=== PATIENT | female | born 1980 | race Caucasian/White ===

== ENCOUNTER 2018-05-01 08:47 | Outpatient (REF) | payer OTHER, SELFPAY ==
[2018-05-01 12:52] LABS: Absolute Basophil Count 0.01 k/cumm (0.0-0.2); Absolute Eosinophil Count 0.11 k/cumm (0.0-0.7); Absolute Lymphocyte Count 1.43 k/cumm (1.2-3.4); Absolute Monocyte Count 0.53 k/cumm (0.11-0.7); Absolute Neutrophil Count 2.38 k/cumm (1.2-6.7); Basophils % 0.2; Eosinophils % 2.5; HCT 36.9 % (36.0-46.0); HGB 11.5 g/dL (12.0-15.5); Lymphocytes % 32.1; Mean Corp. HGB Concentration 31.2 g/dL (32.0-36.0); Mean Corpuscular Hemoglobin 26.6 pg (27.0-33.0); Mean Corpuscular Volume 85.4 fL (80-95); Mean Platelet Volume 12.3 fL (8.0-11.0); Monocytes % 11.9; Neutrophils % 53.3; Platelet Count 234 x1000/uL (130-400); RBC 4.32 m/cumm (4.00-5.20); RBC Distribution Width 14.7 % (11.7-14.6); White Blood Cell Count 4.46 k/cumm (4.4-10.8)
[2018-05-01 13:15] LABS: ALT 14 U/L (12-78); AST 19 U/L (15-37); Albumin 3.5 g/dL (3.4-5.0); Alkaline Phosphatase 50 U/L (46-116); Anion Gap 8.2 mmol/L (3-11); BUN 10 mg/dL (7-18); Bilirubin, Total 0.3 mg/dL (0.2-1.0); CO2 26.8 mmol/L (21.0-32.0); CREATININE 0.89 mg/dL (0.55-1.02); Calcium 8.3 mg/dL (8.5-10.1); Chloride 107 mmol/L (98-107); Cholesterol 125 mg/dL (50-200); Glucose 84 mg/dL (70-100); HDL Cholesterol 61 mg/dL (40-60); LDL CHOLESTEROL 52 mg/dL (<100); Sodium 142 mmol/L (136-145); TSH (W/Ref FT4) 2.23 uIU/mL (0.358-3.74); Total Protein 6.8 g/dL (6.4-8.2); Triglyceride 47 mg/dL (30-150)
[2018-05-01 14:02] LABS: Vitamin B12 315 pg/mL (193-986)
== END 2018-05-01 09:07 ==
LOC: NCHCN 08:47
PROVIDERS: Visit Provider Nurse Practitioner Family
DX: F31.9 Bipolar disorder, unspecified (principal); F10.11 Alcohol abuse, in remission; F41.9 Anxiety disorder, unspecified; Z86.59 Personal history of other mental and behavioral disorders
CPT/HCPCS: 80053; 80061; 83721; 82607; 84443; 85025

== ENCOUNTER 2018-06-09 08:46 | Outpatient (REF) | payer OTHER, SELFPAY ==
[2018-06-09 12:47] LABS: HCT 37.7 % (36.0-46.0); HGB 12.2 g/dL (12.0-15.5); Mean Corp. HGB Concentration 32.4 g/dL (32.0-36.0); Mean Corpuscular Hemoglobin 27.8 pg (27.0-33.0); Mean Corpuscular Volume 85.9 fL (80-95); Mean Platelet Volume 12.4 fL (8.0-11.0); Platelet Count 205 x1000/uL (130-400); RBC 4.39 m/cumm (4.00-5.20); RBC Distribution Width 14.9 % (11.7-14.6); White Blood Cell Count 3.24 k/cumm (4.4-10.8)
[2018-06-09 13:04] LABS: Absolute Basophil Count 0.03 k/cumm (0.0-0.2); Absolute Eosinophil Count 0.03 k/cumm (0.0-0.7); Absolute Lymphocyte Count 1.43 k/cumm (1.2-3.4); Absolute Monocyte Count 0.52 k/cumm (0.11-0.7); Absolute Neutrophil Count 1.23 k/cumm (1.2-6.7); Atypical Lymphocytes % 4; Diff Comment Manual Differential; RBC Morphology Normal
[2018-06-09 13:34] LABS: VALPROIC ACID 21.9 ug/mL (50-100)
== END 2018-06-09 09:06 ==
LOC: NCHCN 08:46
PROVIDERS: PCP Nurse Practitioner Psychiatric/Mental Health; Visit Provider Nurse Practitioner Psychiatric/Mental Health
DX: F31.9 Bipolar disorder, unspecified (principal); Z51.81 Encounter for therapeutic drug level monitoring; Z79.899 Other long term (current) drug therapy
CPT/HCPCS: 80164; 85025

== ENCOUNTER 2018-06-19 08:40 | Outpatient (REF) | payer OTHER, SELFPAY ==
[2018-06-19 12:51] LABS: Abs Immature Grans 0.01 k/cumm (0.0-0.09); Absolute Basophil Count 0.01 k/cumm (0.0-0.2); Absolute Eosinophil Count 0.05 k/cumm (0.0-0.7); Absolute Lymphocyte Count 1.47 k/cumm (1.2-3.4); Absolute Monocyte Count 0.49 k/cumm (0.11-0.7); Absolute Neutrophil Count 2.61 k/cumm (1.2-6.7); Basophils % 0.2; Eosinophils % 1.1; HCT 39.9 % (36.0-46.0); HGB 12.8 g/dL (12.0-15.5); Immature Grans % 0.2; Lymphocytes % 31.7; Mean Corp. HGB Concentration 32.1 g/dL (32.0-36.0); Mean Corpuscular Hemoglobin 27.6 pg (27.0-33.0); Mean Platelet Volume 13.1 fL (8.0-11.0); Monocytes % 10.6; Neutrophils % 56.2; Platelet Count 214 x1000/uL (130-400); RBC 4.64 m/cumm (4.00-5.20); RBC Distribution Width 15.2 % (11.7-14.6); White Blood Cell Count 4.64 k/cumm (4.4-10.8)
[2018-06-19 14:02] LABS: VALPROIC ACID 63.8 ug/mL (50-100)
== END 2018-06-19 09:00 ==
LOC: NCHCN 08:40
PROVIDERS: PCP Nurse Practitioner Psychiatric/Mental Health; Visit Provider Nurse Practitioner Psychiatric/Mental Health
DX: Z79.899 Other long term (current) drug therapy (principal); Z51.81 Encounter for therapeutic drug level monitoring
CPT/HCPCS: 80164; 85025

== ENCOUNTER 2018-11-26 19:38 | Outpatient (REF) | payer OTHER, SELFPAY ==
[2018-11-26 13:33] LABS: Absolute Basophil Count 0.01 k/cumm (0.0-0.2); Absolute Monocyte Count 0.74 k/cumm (0.11-0.7); Absolute Neutrophil Count 1.62 k/cumm (1.2-6.7); Basophils % 0.2; Eosinophils % 2.3; HCT 38.6 % (36.0-46.0); HGB 12.9 g/dL (12.0-15.5); Lymphocytes % 42.2; Mean Corp. HGB Concentration 33.4 g/dL (32.0-36.0); Mean Corpuscular Hemoglobin 29.3 pg (27.0-33.0); Mean Corpuscular Volume 87.7 fL (80-95); Mean Platelet Volume 13.1 fL (8.0-11.0); Monocytes % 17.3; Platelet Count 194 x1000/uL (130-400); RBC Distribution Width 13.2 % (11.7-14.6); White Blood Cell Count 4.27 k/cumm (4.4-10.8)
[2018-11-26 13:53] LABS: ALT 25 U/L (14-59); AST 12 U/L (15-37)
[2018-11-26 14:01] LABS: VALPROIC ACID 70.9 ug/mL (50-100)
== END 2018-11-26 19:58 ==
LOC: NCHCN 19:38
PROVIDERS: PCP Nurse Practitioner Psychiatric/Mental Health; Visit Provider Nurse Practitioner Psychiatric/Mental Health
DX: Z79.899 Other long term (current) drug therapy (principal)
CPT/HCPCS: 80164; 84450; 84460; 85025

== ENCOUNTER 2018-12-15 18:30 | Outpatient (REF) | payer OTHER, SELFPAY ==
[2018-12-15 19:34] LABS: *AMPHETAMINES SCREEN URINE Negative (Negative); *BARBITURATES SCREEN URINE Negative (Negative); *BENZODIAZEPINES SCREEN URINE Negative (Negative); Cannabinoids THC Negative (Negative); Cocaine Screen,Urine Negative (Negative); METHADONE URINE SCREEN Negative (Negative); OPIATES URINE SCREEN Negative (Negative)
[2018-12-15 19:36] LABS: Tricyclic Antidepressants Negative (Negative)
== END 2018-12-15 18:50 ==
LOC: NCHCN 18:30
PROVIDERS: PCP Nurse Practitioner Psychiatric/Mental Health; Visit Provider Nurse Practitioner Psychiatric/Mental Health
DX: F10.11 Alcohol abuse, in remission (principal)
CPT/HCPCS: 80307

== ENCOUNTER 2019-05-13 11:27 | Outpatient (REF) | payer OTHER, SELFPAY ==
[2019-05-13 11:41] LABS: Absolute Basophil Count 0.02 k/cumm (0.0-0.2); Absolute Eosinophil Count 0.08 k/cumm (0.0-0.7); Absolute Lymphocyte Count 1.75 k/cumm (1.2-3.4); Absolute Monocyte Count 0.59 k/cumm (0.11-0.7); Absolute Neutrophil Count 1.99 k/cumm (1.2-6.7); Basophils % 0.5; Eosinophils % 1.8; HCT 40.9 % (36.0-46.0); HGB 13.6 g/dL (12.0-15.5); Lymphocytes % 39.5; Mean Corp. HGB Concentration 33.3 g/dL (32.0-36.0); Mean Corpuscular Hemoglobin 29.8 pg (27.0-33.0); Mean Corpuscular Volume 89.5 fL (80-95); Mean Platelet Volume 13.4 fL (8.0-11.0); Monocytes % 13.3; Neutrophils % 44.9; Platelet Count 152 x1000/uL (130-400); RBC 4.57 m/cumm (4.00-5.20); RBC Distribution Width 12.9 % (11.7-14.6); White Blood Cell Count 4.43 k/cumm (4.4-10.8)
[2019-05-13 11:59] LABS: ALT 15 U/L (14-59); AST 12 U/L (15-37); Albumin 3.6 g/dL (3.4-5.0); Alkaline Phosphatase 52 U/L (46-116); Bilirubin, Direct 0.09 mg/dL (0.00-0.20); Bilirubin, Total 0.2 mg/dL (0.2-1.0); Total Protein 6.7 g/dL (6.4-8.2)
[2019-05-13 12:05] LABS: VALPROIC ACID 28.5 ug/mL (50-100)
== END 2019-05-13 11:47 ==
LOC: NCHCN 11:27
PROVIDERS: PCP Nurse Practitioner Psychiatric/Mental Health; Visit Provider Nurse Practitioner Psychiatric/Mental Health
DX: Z79.899 Other long term (current) drug therapy (principal); Z51.81 Encounter for therapeutic drug level monitoring
CPT/HCPCS: 80076; 80164; 85025

== ENCOUNTER 2019-07-02 08:45 | Outpatient (REF) | payer OTHER, SELFPAY ==
[2019-07-02 17:50] LABS: VALPROIC ACID 63.3 ug/mL (50-100)
[2019-07-02 17:51] LABS: ALT 15 U/L (14-59); AST 11 U/L (15-37); Albumin 3.7 g/dL (3.4-5.0); Alkaline Phosphatase 49 U/L (46-116); Bilirubin, Direct 0.18 mg/dL (0.00-0.20); Bilirubin, Total 0.5 mg/dL (0.2-1.0); Total Protein 7.1 g/dL (6.4-8.2)
[2019-07-02 18:03] LABS: Abs Immature Grans 0.01 k/cumm (0.0-0.09); Absolute Basophil Count 0.01 k/cumm (0.0-0.2); Absolute Lymphocyte Count 1.88 k/cumm (1.2-3.4); Absolute Monocyte Count 0.61 k/cumm (0.11-0.7); Absolute Neutrophil Count 1.13 k/cumm (1.2-6.7); Basophils % 0.3; Eosinophils % 2.7; HCT 40.2 % (36.0-46.0); HGB 13.5 g/dL (12.0-15.5); Immature Grans % 0.3 %; Lymphocytes % 50.3; Mean Corp. HGB Concentration 33.6 g/dL (32.0-36.0); Mean Corpuscular Hemoglobin 30.2 pg (27.0-33.0); Mean Corpuscular Volume 89.9 fL (80-95); Mean Platelet Volume 13.3 fL (8.0-11.0); Monocytes % 16.3; Neutrophils % 30.1; Platelet Count 170 x1000/uL (130-400); RBC 4.47 m/cumm (4.00-5.20); RBC Distribution Width 13.4 % (11.7-14.6); White Blood Cell Count 3.74 k/cumm (4.4-10.8)
== END 2019-07-02 09:05 ==
LOC: NCHCN 08:45
PROVIDERS: PCP Nurse Practitioner Psychiatric/Mental Health; Visit Provider Family Medicine
DX: F31.9 Bipolar disorder, unspecified (principal); Z51.81 Encounter for therapeutic drug level monitoring
CPT/HCPCS: 80076; 80164; 85025

== ENCOUNTER 2019-10-18 16:28 | Outpatient (REF) | payer OTHER, SELFPAY ==
--- NOTE | 2019-10-18 16:00 | PAPFT_PTH ---
PATIENT: Elham Singh LOC: [facility]#:[id number] AGE/SX: 38/F ROOM: RE10/18/[address]: Adriana Garber : 1980 BED: DIS: 10/18/2019 SPEC #: [id number] RECD: 10/18/19 18:16 STATUS: BAIRON REQ #: [id number] GWENDOLYN: 10/18/19 16:[address]: Adriana Garber DEPT: [facility] Cytology RECD BY: Iris Ratliff ENTERED: 10/18/19 18:16 SP TYPE: PAPFT OTHR DR: Rona Rothman Tissues: 1 - CX/ENDOCX FOR PAP SMEARS Procedures: PAP THIN PREP/[facility] Screening HPV DNA PROBE Comments: [id number] (CHLAMYDIA/GC)
[2019-10-21 15:30] LABS: Chlamydia Result Negative (Negative); GC Result Negative (Negative)
== END 2019-10-18 16:48 ==
LOC: NCHCN 16:28
PROVIDERS: PCP Nurse Practitioner Psychiatric/Mental Health; Visit Provider Family Medicine
DX: Z11.51 Encounter for screening for human papillomavirus (HPV) (principal)
CPT/HCPCS: 87491; 87591; 88142; 87624

== ENCOUNTER 2019-11-02 14:51 | Outpatient (REF) | payer OTHER, SELFPAY ==
[2019-11-02 20:23] LABS: Abs Immature Grans 0.01 10^3/uL (0.0-0.06); Absolute Basophil Count 0.04 10^3/uL (0.0-0.2); Absolute Eosinophil Count 0.15 10^3/uL (0.0-0.7); Absolute Monocyte Count 0.49 10^3/uL (0.1-0.8); Absolute Neutrophil Count 1.85 10^3/uL (1.2-6.7); Basophils % 0.8; Eosinophils % 2.9; HCT 40.8 % (36.0-46.0); HGB 13.4 g/dL (11.2-15.7); Immature Grans % 0.2; Lymphocytes % 50.6; MCH 30.8 pg (27.0-33.0); MCHC 32.8 % (32.0-36.0); MCV 93.8 fL (80-95); Monocytes % 9.5; Nucleated RBC 0 %; Platelet Count 182 10^3/uL (130-400); RBC 4.35 10^6/uL (3.93-5.22); RDW 12.5 % (11.7-14.6); RDW-SD 43.2 fL; WBC 5.14 10^3/uL (4.4-10.8)
== END 2019-11-02 15:11 ==
LOC: NCHCN 14:51
PROVIDERS: PCP Nurse Practitioner Psychiatric/Mental Health; Visit Provider Nurse Practitioner Psychiatric/Mental Health
DX: Z79.899 Other long term (current) drug therapy (principal)
CPT/HCPCS: 85025

== ENCOUNTER 2020-06-06 08:10 | Outpatient (REF) | payer OTHER, SELFPAY ==
[2020-06-06 12:08] LABS: HCT 39.4 % (36.0-46.0); HGB 13.1 g/dL (11.2-15.7); MCH 31.8 pg (27.0-33.0); MCHC 33.2 % (32.0-36.0); MCV 95.6 fL (80-95); MPV 12.5 fL (8.0-11.0); Platelet Count 162 10^3/uL (130-400); RBC 4.12 10^6/uL (3.93-5.22); RDW-SD 41.9 fL; WBC 5.23 10^3/uL (4.4-10.8)
[2020-06-06 12:25] LABS: VALPROIC ACID 44.2 ug/mL (50-100)
[2020-06-06 12:28] LABS: TSH (W/Ref FT4) 3.89 uIU/mL (0.36-3.74)
[2020-06-06 12:45] LABS: FREE T4 0.67 ng/dL (0.76-1.46)
== END 2020-06-06 08:11 | disposition home or self-care (01) ==
LOC: NCHCN 08:10
PROVIDERS: PCP Nurse Practitioner Psychiatric/Mental Health; Visit Provider Nurse Practitioner Psychiatric/Mental Health
DX: Z79.899 Other long term (current) drug therapy (principal); Z51.81 Encounter for therapeutic drug level monitoring; F31.89 Other bipolar disorder
CPT/HCPCS: 85027; 80164; 84439; 84443

== ENCOUNTER 2020-09-21 14:24 | Outpatient (REF) | payer OTHER, SELFPAY ==
[2020-09-21 19:19] LABS: HCT 42.4 % (36.0-46.0); MCH 31.2 pg (27.0-33.0); MCV 94.4 fL (80-95); MPV 11.8 fL (8.0-11.0); Platelet Count 226 10^3/uL (130-400); RBC 4.49 10^6/uL (3.93-5.22); RDW 11.9 % (11.7-14.6); RDW-SD 41.3 fL; WBC 3.93 10^3/uL (4.4-10.8)
[2020-09-21 19:38] LABS: VALPROIC ACID 26.3 ug/mL (50-100)
[2020-09-23 10:01] LABS: HIV-1/2 Ag & Ab Screen Negative (Negative)
[2020-09-26 08:55] LABS: Hepatitis C Ab w Rflx HCV PCR Negative (Negative); Syphilis Serology (RPR) Negative (Negative)
[2020-09-26 08:56] LABS: Hepatitis A Antibody IgM Negative (Negative); Hepatitis B Core Antibody Negative (Negative); Hepatitis B surface Ag Negative (Negative); Hepatitis C Ab w Rflx HCV PCR Negative (Negative)
[2020-09-26 08:58] LABS: HBs Antibody, Quant >1000.0 mIU/mL (See Note); Hepatitis B Surface Ab Positive (See Note)
== END 2020-09-21 14:25 | disposition home or self-care (01) ==
LOC: NCHCN 14:24
PROVIDERS: PCP Nurse Practitioner Psychiatric/Mental Health; Visit Provider Family Medicine
DX: Z00.00 Encounter for general adult medical examination without abnormal findings (principal); F41.9 Anxiety disorder, unspecified; Z79.899 Other long term (current) drug therapy
CPT/HCPCS: 85027; 86704; 86706; 86709; 86803; 87340; 87389; 80164; 86592

== ENCOUNTER 2020-10-18 15:52 | Outpatient (REF) | payer OTHER, SELFPAY ==
[2020-10-18 20:39] LABS: VALPROIC ACID 57.3 ug/mL (50-100)
== END 2020-10-18 15:53 | disposition home or self-care (01) ==
LOC: NCHCN 15:52
PROVIDERS: PCP Nurse Practitioner Psychiatric/Mental Health; Visit Provider Family Medicine
DX: Z79.899 Other long term (current) drug therapy (principal); F31.9 Bipolar disorder, unspecified
CPT/HCPCS: 80164

== ENCOUNTER 2022-06-21 15:05 | Outpatient (REF) | payer BC, SELFPAY ==
[2022-06-21 18:51] LABS: ALT 15 U/L (14-59); AST 16 U/L (15-37); Albumin 3.8 g/dL (3.4-5.0); Alkaline Phosphatase 57 U/L (46-116); Anion Gap 5.2 mmol/L (3-11); BUN 9 mg/dL (7-18); Bilirubin, Total 0.2 mg/dL (0.2-1.0); CO2 29.8 mmol/L (21.0-32.0); CREATININE 0.8 mg/dL (0.55-1.02); Chloride 105 mmol/L (98-107); Estimated GFR 95.46 (mL/min/1.73m2); Glucose 84 mg/dL (74-106); Potassium 4.5 mmol/L (3.5-5.1); Sodium 140 mmol/L (136-145); Total Protein 7.3 g/dL (6.4-8.2)
== END 2022-06-21 15:06 | disposition home or self-care (01) ==
LOC: NCHCN 15:05
PROVIDERS: PCP Nurse Practitioner Psychiatric/Mental Health; Visit Provider Family Medicine
DX: F10.10 Alcohol abuse, uncomplicated (principal)
CPT/HCPCS: 80053

== ENCOUNTER 2022-08-02 16:52 | Outpatient (REF) | payer BC, SELFPAY ==
[2022-08-02 19:34] LABS: ALT 21 U/L (14-59); AST 10 U/L (15-37); Albumin 4.3 g/dL (3.4-5.0); Alkaline Phosphatase 55 U/L (46-116); Bilirubin, Direct 0.2 mg/dL (0.0-0.2); Bilirubin, Total 0.8 mg/dL (0.2-1.0); Total Protein 7.7 g/dL (6.4-8.2)
== END 2022-08-02 16:53 | disposition home or self-care (01) ==
LOC: NCHCN 16:52
PROVIDERS: PCP Nurse Practitioner Psychiatric/Mental Health; Visit Provider Family Medicine
DX: F31.89 Other bipolar disorder (principal); Z79.899 Other long term (current) drug therapy; Z51.81 Encounter for therapeutic drug level monitoring
CPT/HCPCS: 80076

== ENCOUNTER 2022-08-14 02:20 | Outpatient (CLI) | payer BC, SELFPAY ==
--- NOTE | 2022-08-14 | DI.MAMMO_ITS ---
Exam(s) MAMMO SCREENING EXAM: MAMMO SCREENING CLINICAL HISTORY: SCREENING, Z12.39, BASELINE TECHNIQUE: Bilateral full field digital CC and MLO mammographic images were obtained with 3D tomosyn thesis and utilizing computer aided detection (CAD). COMPARISON: This is a baseline examination. FINDINGS: Masses/Architectural Distortion: On the left MLO view, there is a question of nodular densities in th e upper breast. The appear partially obscured. There also is a question of a partially obscured nod ular density measuring 1 cm in the posterior superior aspect of the right breast on the MLO view. Microcalcifications: No suspicious pleomorphic-type are seen. Skin Thickening/Nipple Retraction: None. IMPRESSION: 1. Question of nodular densities in the upper breast on the MLO views as described. 2. Further evaluation with spot compression views is requested. Bilateral breast ultrasound should a lso be obtained at that time. BI-RADS Category 0 - Assessment Incomplete: Need additional imaging evaluation Breast Density - Category C - Heterogeneously dense Breast density category C or D implies that the patient has dense breast tissue. Dense breast tissue is very common and is not abnormal but dense breast tissue can make it harder to find cancer on a ma mmogram. Also, dense breast tissue may increase their breast cancer risk. This information about the result of the mammogram report was provided to the patient to raise their awareness. Use this report when you speak with the patient about their risks for breast cancer, which includes their family hist ory. At that time, you may recommend for more screening tests (Ultrasound or MRI) as they might be us eful based on their risk. A negative radiographic report should not delay biopsy if a dominant or clinically suspicious mass is present. Up to ten percent of cancers are not identified on mammography. A negative report may reinforce clinical impression. Adenosis and dense breasts may obscure an underlying neoplasm. False positive reports average 6 to 10%. Patient will receive a letter notifying them of these results.
== END 2022-08-14 02:40 ==
PROVIDERS: PCP Nurse Practitioner Psychiatric/Mental Health; Visit Provider Family Medicine
DX: Z12.31 Encounter for screening mammogram for malignant neoplasm of breast (principal)
CPT/HCPCS: 77063; 77067

== ENCOUNTER 2022-08-27 01:58 | Outpatient (CLI) | payer BC, SELFPAY ==
--- NOTE | 2022-08-27 09:02 | DI.MAMMO_ITS ---
Exam(s) US BREAST LT COMPLETE US BREAST RT LIMITED MG MAMMO SCREEN CALL BACK BI EXAM: MG MAMMO SCREEN CALL BACK BI and ultrasound right breast limited and ultrasound left breast co mplete CLINICAL HISTORY: F/U MAMMO, R92.8,? NODULAR DENSITIES. TECHNIQUE: Craniocaudal and mediolateral oblique Full Field Digital Mammography views of the bilater al breast with Computer Aided Diagnosis followed by Tomosynthesis and bilateral breast ultrasound. COMPARISON: Comparison is made with prior examinations. FINDINGS: Mammography/Tomosynthesis: Masses/Architectural Distortion: The areas identified on the prior examination are less concerning on the current exam. No suspicious masses are seen. No areas of architectural distortion are identifi ed. Microcalcifictions: No suspicious pleomorphic-type are seen. Skin Thickening/Nipple Retraction: None. Bilateral a breast US: Echotexture: Normal appearance of the glandular tissue. Shadowing: No suspicious foci. Cyst: None. Solid lesions: None seen. Ductal dilation: None. IMPRESSION: 1. No evidence of malignancy is noted. 2. Unless there is more urgent need, follow-up screening mammography is recommended, as per [employer] [employer] guidelines. 3. The findings were discussed with the patient on the date of the examination. BI-RADS Category 1 - Negative Breast Density - Category C - Heterogeneously dense Breast density Category C or D implies that the patient has dense breast tissue. Dense breast tissue can make it harder to find cancer on a mammogram. Dense breast tissue is also associated with an incr eased risk of breast cancer. This information about the result of the mammogram report was provided to the patient to raise their awareness. Use this report when you speak with the patient about their risks for breast cancer, which includes their family history. At that time, you may recommend additional screening tests (Ultrasoun d or MRI) as these tests may add significant information. A negative radiographic report should not delay biopsy if a dominant or clinically suspicious mass is present. Up to ten percent of cancers are not identified on mammography. A negative report may reinforce clinical impression. Adenosis and dense breasts may obscure an underlying neoplasm. False positive reports average 6 to 10%. Patient will receive a letter notifying them of these results.
== END 2022-08-27 02:18 ==
LOC: DI 01:59
PROVIDERS: PCP Nurse Practitioner Psychiatric/Mental Health; Visit Provider Family Medicine
DX: Z12.31 Encounter for screening mammogram for malignant neoplasm of breast (principal); R92.8 Other abnormal and inconclusive findings on diagnostic imaging of breast
CPT/HCPCS: 76642; 77063; 77067

== ENCOUNTER 2024-08-17 15:20 | Outpatient (REF) | payer BC, SELFPAY ==
[2024-08-18 11:27] LABS: Chlamydia Result Negative (Negative); GC Result Negative (Negative)
== END 2024-08-17 15:21 | disposition home or self-care (01) ==
LOC: LBN 15:20
PROVIDERS: PCP Family Medicine; Visit Provider Obstetrics & Gynecology
DX: Z11.51 Encounter for screening for human papillomavirus (HPV) (principal); Z01.419 Encounter for gynecological examination (general) (routine) without abnormal findings; Z11.3 Encounter for screening for infections with a predominantly sexual mode of transmission
CPT/HCPCS: 87491; 87591; 88142; 87624

== ENCOUNTER 2024-09-16 00:41 | Outpatient (CLI) | payer BC, SELFPAY ==
--- NOTE | 2024-09-16 12:15 | DI.MAMMO_ITS ---
Exam(s) MAMMO SCREENING EXAM: MAMMO SCREENING CLINICAL HISTORY: screening TECHNIQUE: Mammograms were interpreted according to the usual protocol including computer analysis with CAD system, tomosynthesis and C-view imaging. COMPARISON: 2022 FINDINGS: The breasts are composed of heterogeneously dense fibroglandular densities, Breast Density category C. No suspicious masses or suspicious microcalcifications are seen. No skin thickening or abnormal axillary lymph nodes are seen. There has been no significant change from prior exams. IMPRESSION: BI-RADS Category 1, Negative mammogram. Yearly screening mammography is recommended. Breast Density: Category C - The breasts are heterogeneously dense, which may obscure small masses. Breast density Category C or D implies that the patient has dense breast tissue. Dense breast tissue can make it harder to find cancer on a mammogram. Dense breast tissue is also associated with an increased risk of breast cancer. This information about the result of the mammogram report was provided to the patient to raise their awareness. Use this report when you speak with the patient about their risks for breast cancer, which includes their family history. At that time, you may recommend additional screening tests (Ultrasound or MRI) as these tests may add significant information. A negative radiographic report should not delay biopsy if a dominant or clinically suspicious mass is present. Up to ten percent of cancers are not identified on mammography. A negative report may reinforce clinical impression. Adenosis and dense breasts may obscure an underlying neoplasm. False positive reports average 6 to 10%.
== END 2024-09-16 01:01 ==
LOC: DI 00:41
PROVIDERS: PCP Family Medicine; Visit Provider Obstetrics & Gynecology
DX: Z12.31 Encounter for screening mammogram for malignant neoplasm of breast (principal); R92.333 Mammographic heterogeneous density, bilateral breasts
CPT/HCPCS: 77063; 77067

== ENCOUNTER 2024-10-28 11:00 | Outpatient (CLI) | payer BC, SELFPAY ==
[2024-10-28 11:03] LABS: Abs Immature Grans 0.01 10^3/uL (0.0-0.06); HCT 34.5 % (36.0-46.0); HGB 10.6 g/dL (11.2-15.7); Immature Grans % 0.3 %; MCH 24.6 pg (27.0-33.0); MCHC 30.7 % (32.0-36.0); MCV 80 fL (80-95); MPV 11.1 fL (8.0-11.0); Platelet Count 251 10^3/uL (130-400); RBC 4.31 10^6/uL (3.93-5.22); RDW 15.1 % (11.7-14.6); RDW-SD 44.3 fL; WBC 3.65 10^3/uL (4.4-10.8)
[2024-10-28 11:49] LABS: ALT 18 U/L (14-59); AST 19 U/L (15-37); Albumin 4.2 g/dL (3.4-5.0); Alkaline Phosphatase 56 U/L (46-116); Anion Gap 6.4 mmol/L (3-11); BUN 13 mg/dL (7-18); Bilirubin, Total 0.5 mg/dL (0.2-1.0); CO2 28.6 mmol/L (21.0-32.0); Calcium 8.8 mg/dL (8.5-10.1); Calculated LDL 88 mg/dL (<100); Chloride 103 mmol/L (98-107); Cholesterol 212 mg/dL (<200); Estimated GFR 81.86 (mL/min/1.73m2); Glucose 86 mg/dL (74-106); HDL Cholesterol 119 mg/dL (>or=50); Potassium 4.3 mmol/L (3.5-5.1); Sodium 138 mmol/L (136-145); Total Protein 8.1 g/dL (6.4-8.2); Triglyceride 29 mg/dL (<150)
== END 2024-10-28 11:01 | disposition home or self-care (01) ==
PROVIDERS: PCP Family Medicine; Visit Provider Nurse Practitioner Psychiatric/Mental Health
DX: Z51.81 Encounter for therapeutic drug level monitoring (principal)
CPT/HCPCS: 36415; 80053; 80061; 85025

== ENCOUNTER 2024-11-25 14:42 | Outpatient (CLI) | payer BC, SELFPAY ==
[2024-11-25 14:29] LABS: Iron 21 ug/dL (50-170); Total Iron Binding Capacity 471 ug/dL (250-450); Transferrin Sat 4 % (15-50)
[2024-11-25 14:58] LABS: Ferritin 7 ng/mL (8-252); Folate 18.8 ng/mL (8.6-20.0); Vitamin B12 315 pg/mL (193-986)
[2024-11-25 22:53] LABS: Hep B Core Antibody Negative (Negative)
[2024-11-25 22:55] LABS: Hepatitis C Ab w Rflx HCV PCR Negative (Negative)
[2024-11-26 09:09] LABS: HIV-1/2 Ag & Ab Screen Negative (Negative)
== END 2024-11-25 14:43 | disposition home or self-care (01) ==
LOC: LBO 14:43
PROVIDERS: PCP Family Medicine; Visit Provider Nurse Practitioner Psychiatric/Mental Health
DX: E61.1 Iron deficiency (principal); Z11.3 Encounter for screening for infections with a predominantly sexual mode of transmission
CPT/HCPCS: 36415; 86704; 86803; 87340; 87389; 82607; 82728; 82746; 83540; 83550

== ENCOUNTER 2025-01-10 18:48 | Outpatient (REF) | payer BC, SELFPAY ==
[2025-01-10 19:47] LABS: HCT 34.5 % (36.0-46.0); HGB 10.9 g/dL (11.2-15.7); MCH 25.1 pg (27.0-33.0); MCHC 31.6 % (32.0-36.0); MCV 80 fL (80-95); MPV 11.7 fL (8.0-11.0); Platelet Count 267 10^3/uL (130-400); RBC 4.34 10^6/uL (3.93-5.22); RDW 18.0 % (11.7-14.6); RDW-SD 52.3 fL; WBC 3.89 10^3/uL (4.4-10.8)
[2025-01-10 20:23] LABS: Ferritin 15 ng/mL (8-252); Vitamin B12 537 pg/mL (193-986)
== END 2025-01-10 18:49 | disposition home or self-care (01) ==
LOC: NCHCN 18:48
PROVIDERS: PCP Family Medicine; Visit Provider Family Medicine
DX: D50.9 Iron deficiency anemia, unspecified (principal); E53.8 Deficiency of other specified B group vitamins
CPT/HCPCS: 82784; 83516; 85027; 82607; 82728